=== PATIENT | female | born 1960 | race Caucasian/White ===

== ENCOUNTER 2018-11-28 12:45 | Emergency (ER) | payer SELFPAY ==
[~2018-11-28] VITALS: Ht 175.3 cm; Wt 77.1 kg
--- NOTE | 2018-11-28 13:00 | NUR ---
patient in room 2a
[2018-11-28] MEDS ORDERED: ONDANSETRON 4 MG/2 ML VIAL IM ONE (13:30)
[2018-11-28] MEDS ORDERED: HYDROMORPHONE 1 MG/1 ML DISP.SYRIN IM ONE (13:30)
--- NOTE | 2018-11-28 13:34 | NUR ---
refused dilaudid and zofran shots. Dr Rios made aware. rx will be changed to po
[2018-11-28] MEDS ORDERED: OXYCODONE/APAP 5-325 MG TABLET PO ONE (13:45)
--- NOTE | 2018-11-28 13:45 | NUR ---
medicated for pain with percocet 2 tabs po
[2018-11-28] MEDS ORDERED: OXYCODONE/APAP 5-325 MG TABLET ONE (13:46)
--- NOTE | 2018-11-28 14:04 | NUR ---
dr Rios at the bedside reassessing patient
[2018-11-28 14:11] VITALS: BP 146/94
== END 2018-11-28 14:12 | disposition home or self-care (01) ==
LOC: ER 12:45
DX: M54.40 Lumbago with sciatica, unspecified side (principal); G89.29 Other chronic pain
CPT/HCPCS: A4663

== ENCOUNTER 2018-12-17 15:10 | Emergency (ER) | payer SELFPAY ==
[~2018-12-17] VITALS: Ht 165.1 cm; Wt 77.1 kg
--- NOTE | 2018-12-17 15:24 | NUR ---
Patient discharged to home in stable conditon with slow steady gait. Written and verbal after care instructions given to patient. Patient verbalizes understanding of instructions.
== END 2018-12-17 15:26 | disposition home or self-care (01) ==
LOC: ER 15:12
DX: M25.561 Pain in right knee (principal); M25.562 Pain in left knee; V49.9XXA Car occupant (driver) (passenger) injured in unspecified traffic accident, initial encounter; Y93.89 Activity, other specified; Y92.89 Other specified places as the place of occurrence of the external cause; Y99.8 Other external cause status
CPT/HCPCS: A4663

== ENCOUNTER 2018-12-26 12:29 | Emergency (ER) | payer SELFPAY ==
[~2018-12-26] VITALS: Ht 175.3 cm; Wt 77.1 kg
--- NOTE | 2018-12-26 12:41 | NUR ---
in room 2b
[2018-12-26 12:50] VITALS: BP 130/86
--- NOTE | 2018-12-26 12:52 | NUR ---
seen by Dr. Glasgow. exit care and prescription given and signed by patient
== END 2018-12-26 12:53 | disposition home or self-care (01) ==
LOC: ER 12:29
DX: M25.561 Pain in right knee (principal); M25.562 Pain in left knee
CPT/HCPCS: A4663

== ENCOUNTER 2019-01-07 18:29 | Emergency (ER) | payer BC ==
[~2019-01-07] VITALS: Ht 175.3 cm; Wt 77.1 kg
[2019-01-07] MEDS ORDERED: predniSONE 20 MG TABLET PO ONE (19:00)
[2019-01-07] MEDS ORDERED: predniSONE 20 MG TABLET ONE (19:01)
--- NOTE | 2019-01-07 19:03 | NUR ---
PT WAS EVALUATED BY DR JOSHUA. PT WAS D/C TO HOME. D/C INSTRUCTIONS GIVEN TO THE PT.
[2019-01-07 19:04] VITALS: BP 140/82
== END 2019-01-07 19:05 | disposition home or self-care (01) ==
LOC: ER 18:29
DX: M54.42 Lumbago with sciatica, left side (principal); G89.29 Other chronic pain; Z88.8 Allergy status to other drugs, medicaments and biological substances
CPT/HCPCS: 99283; J7512; A4663

== ENCOUNTER 2019-01-12 15:44 | Emergency (ER) | payer BC ==
[~2019-01-12] VITALS: Ht 175.3 cm; Wt 77.1 kg
--- NOTE | 2019-01-12 16:53 | NUR ---
Patient discharged to home in stable conditon. Written and verbal after care instructions given. Patient verbalizes understanding of instructions.
== END 2019-01-12 16:55 | disposition home or self-care (01) ==
LOC: ER 15:44
DX: M25.461 Effusion, right knee (principal); M25.562 Pain in left knee; M79.645 Pain in left finger(s); Z88.8 Allergy status to other drugs, medicaments and biological substances; W01.0XXA Fall on same level from slipping, tripping and stumbling without subsequent striking against object, initial encounter; Y93.89 Activity, other specified; Y92.89 Other specified places as the place of occurrence of the external cause; Y99.8 Other external cause status
CPT/HCPCS: A4663

== ENCOUNTER 2019-01-16 11:04 | Emergency (ER) | payer BC ==
[~2019-01-16] VITALS: Ht 175.3 cm; Wt 81.6 kg
--- NOTE | 2019-01-16 11:30 | NUR ---
PT RECEIVED AMBULATORY FR HOME. CO R KNEE, S/P FALL 01/11/2019. DESCRIBING WORSENING PAIN AND SWELLING TO SITE. LAST TAKEN PAIN MEDS([facility]) WednesdaySTANLEY MCKENZIE AT BEDSIDE FOR HISTORY AND PHYSICAL
--- NOTE | 2019-01-16 12:05 | NUR ---
AT BEDSIDE FOR ULTRASOUND OF RT KNEE. PT ABLE TO TOLERATE PROCEDURE. NOT IN ANY FORM OF DISTRESS.
--- NOTE | 2019-01-16 12:22 | NUR ---
Patient discharged to home in stable conditon, AMBULATORY WITH ANTALGIC GAIT. Written and verbal after care instructions given. Patient verbalizes understanding of instructions. RX GIVEN FOR PAIN.
[2019-01-16 12:26] VITALS: BP 130/80
== END 2019-01-16 12:27 | disposition home or self-care (01) ==
LOC: ER 11:04
DX: S80.01XA Contusion of right knee, initial encounter (principal); M25.461 Effusion, right knee; Z88.8 Allergy status to other drugs, medicaments and biological substances; W01.0XXA Fall on same level from slipping, tripping and stumbling without subsequent striking against object, initial encounter; Y93.89 Activity, other specified; Y92.89 Other specified places as the place of occurrence of the external cause; Y99.8 Other external cause status
CPT/HCPCS: A4663

== ENCOUNTER 2019-01-21 10:26 | Emergency (ER) | payer BC ==
[~2019-01-21] VITALS: Ht 175.3 cm; Wt 81.6 kg
--- NOTE | 2019-01-21 11:04 | NUR ---
PT WAS EVALUATED BY DR FRANZ. PT WAS D/C'D TO HOME. D/C INSTRUCTIONS GIVEN TO THE PT.
[2019-01-21 11:05] VITALS: BP 136/74
== END 2019-01-21 11:06 | disposition home or self-care (01) ==
LOC: ER 10:26
DX: M25.461 Effusion, right knee (principal); Z88.8 Allergy status to other drugs, medicaments and biological substances
CPT/HCPCS: A4663

== ENCOUNTER 2019-01-24 11:47 | Emergency (ER) | payer BC ==
[~2019-01-24] VITALS: Ht 175.3 cm; Wt 81.6 kg
--- NOTE | 2019-01-24 11:59 | NUR ---
Patient discharged to home in stable conditon. Written and verbal after care instructions given. Patient verbalizes understanding of instructions. Stressed follow up.
== END 2019-01-24 12:00 | disposition home or self-care (01) ==
LOC: ER 11:48
DX: M25.461 Effusion, right knee (principal)
CPT/HCPCS: A4663

== ENCOUNTER 2019-02-04 15:12 | Emergency (ER) | payer BC ==
[~2019-02-04] VITALS: Ht 175.3 cm; Wt 81.6 kg
--- NOTE | 2019-02-04 16:00 | NUR ---
PATIENT WAS MSE BY DR FRANZ IN ROOM 03A.
--- NOTE | 2019-02-04 16:17 | NUR ---
Patient discharged to home in stable conditon. Written and verbal after care instructions given. Patient verbalizes understanding of instructions.
[2019-02-04 16:24] VITALS: BP 134/75
== END 2019-02-04 16:30 | disposition home or self-care (01) ==
LOC: ER 15:14
DX: M25.461 Effusion, right knee (principal); Z88.8 Allergy status to other drugs, medicaments and biological substances
CPT/HCPCS: A4663

== ENCOUNTER 2019-02-11 12:46 | Emergency (ER) | payer SELFPAY ==
--- NOTE | 2019-02-11 12:48 | NUR ---
PT WAS CALLED TO TRIAGE AREA - NO RESPONSE.
--- NOTE | 2019-02-11 13:01 | NUR ---
PT WAS CALLED TO TRIAGE AREA - NO RESPONS.
== END 2019-02-11 13:03 | disposition left against medical advice (07) ==
LOC: ER 12:49
DX: Z53.21 Procedure and treatment not carried out due to patient leaving prior to being seen by health care provider (principal)

== ENCOUNTER 2019-02-20 10:03 | Emergency (ER) | payer SELFPAY ==
[~2019-02-20] VITALS: Ht 175.3 cm; Wt 81.6 kg
--- NOTE | 2019-02-20 10:47 | NUR ---
Patient eloped from facility. ER physician notified.
== END 2019-02-20 10:48 | disposition left against medical advice (07) ==
LOC: ER 10:03
DX: Z53.21 Procedure and treatment not carried out due to patient leaving prior to being seen by health care provider (principal)
CPT/HCPCS: A4663

== ENCOUNTER 2019-04-17 13:29 | Emergency (ER) | payer SELFPAY ==
[~2019-04-17] VITALS: Ht 175.3 cm; Wt 81.6 kg
[2019-04-17] MEDS ORDERED: OXYCODONE/APAP 5-325 MG TABLET PO ONE (14:00)
[2019-04-17] MEDS ORDERED: OXYCODONE/APAP 5-325 MG TABLET ONE (14:02)
--- NOTE | 2019-04-17 14:02 | NUR ---
Patient discharged to home in stable conditon. Written and verbal after care instructions given. Patient verbalizes understanding of instructions.pt walks in steady gait.
== END 2019-04-17 14:04 | disposition home or self-care (01) ==
LOC: ER 13:29
DX: G89.29 Other chronic pain (principal); M25.561 Pain in right knee; Z88.8 Allergy status to other drugs, medicaments and biological substances
CPT/HCPCS: A4663

== ENCOUNTER 2019-08-24 15:38 | Emergency (ER) | payer SELFPAY ==
[~2019-08-24] VITALS: Ht 175.3 cm; Wt 79.4 kg
--- NOTE | 2019-08-24 15:50 | NUR ---
ENRIQUE MCKENZIE AT BEDSIDE FOR MSE.
--- NOTE | 2019-08-24 16:14 | NUR ---
PT REFUSING ADDITIONAL XRAY FOR L SHOULDER. ER NOTIFIED.
--- NOTE | 2019-08-24 16:46 | NUR ---
Patient discharged to home in stable conditon. Written and verbal after care instructions given. Patient verbalizes understanding of instructions. ALL BELONGINGS W/ PT. PT SELF-AMBULATED W/O DIFFICULTY.
[2019-08-24 16:47] VITALS: BP 146/88
== END 2019-08-24 16:47 | disposition home or self-care (01) ==
LOC: ER 15:38
DX: M54.12 Radiculopathy, cervical region (principal); M25.512 Pain in left shoulder
CPT/HCPCS: 73030; A4663

== ENCOUNTER 2020-04-11 14:46 | Emergency (ER) | payer BC ==
[~2020-04-11] VITALS: Ht 175.3 cm; Wt 72.6 kg
[2020-04-11] MEDS ORDERED: HYDROCODONE/APAP 5-325MG TABLET PO ONE (15:00)
[2020-04-11] MEDS ORDERED: KETOROLAC TROMETHAMINE 15 MG INJ IM ONE (15:00)
--- NOTE | 2020-04-11 15:00 | NUR ---
Dr. Leal at bedside for MSE
[2020-04-11] MEDS ORDERED: HYDROCODONE/APAP 5-325MG TABLET ONE (15:14)
[2020-04-11] MEDS ORDERED: IBUPROFEN 600 MG TABLET PO ONE (15:15)
[2020-04-11] MEDS ORDERED: IBUPROFEN 600 MG TABLET ONE (15:25)
--- NOTE | 2020-04-11 15:48 | NUR ---
Patient discharged to home in stable condition. Written and verbal after care instructions given. Patient verbalizes understanding of instructions. Stressed follow up or return to ER for worsening s/s. Patient ambulated with steady gait. NAD noted
[2020-04-11 15:53] VITALS: BP 129/86
== END 2020-04-11 15:48 | disposition home or self-care (01) ==
LOC: ER 14:46
DX: M25.531 Pain in right wrist (principal); M79.644 Pain in right finger(s); V43.52XA Car driver injured in collision with other type car in traffic accident, initial encounter; Y92.410 Unspecified street and highway as the place of occurrence of the external cause; G89.4 Chronic pain syndrome; Z98.84 Bariatric surgery status
CPT/HCPCS: 73100; 73110; 73130; A4663

== ENCOUNTER 2023-06-20 10:49 | Emergency (ER) | payer SELFPAY ==
[~2023-06-20] VITALS: Ht 175.3 cm; Wt 83.9 kg
[2023-06-20] MEDS ORDERED: OXYC-128 PO (11:06)
[2023-06-20 11:12] VITALS: BP 120/85; O2SAT 98
== END 2023-06-20 11:13 | disposition home or self-care (01) ==
LOC: ER 10:56
DX: G89.18 Other acute postprocedural pain (principal); M25.562 Pain in left knee; Z76.0 Encounter for issue of repeat prescription; Z88.6 Allergy status to analgesic agent; Z88.5 Allergy status to narcotic agent; Z88.8 Allergy status to other drugs, medicaments and biological substances; Z79.899 Other long term (current) drug therapy
CPT/HCPCS: A4606; A4663

== ENCOUNTER 2023-07-18 16:02 | Emergency (ER) | payer BC ==
[~2023-07-18] VITALS: Ht 175.3 cm; Wt 74.8 kg
[~2023-07-18 16:02] MED LIST: OXYC-128 PO
[2023-07-18] MEDS ORDERED: OXYC-128 PO (16:29)
[2023-07-18] MEDS ORDERED: NALO4SPR BNOSTRILS (16:31)
[2023-07-18 16:42] VITALS: BP 118/76; TEMP 98.2; O2SAT 98
== END 2023-07-18 16:42 | disposition home or self-care (01) ==
LOC: ER 16:05
DX: M25.562 Pain in left knee (principal); Z76.0 Encounter for issue of repeat prescription; E66.9 Obesity, unspecified; Z79.899 Other long term (current) drug therapy; Z88.1 Allergy status to other antibiotic agents
CPT/HCPCS: A4606; A4663

== ENCOUNTER 2023-07-28 14:15 | Emergency (ER) | payer BC ==
[~2023-07-28] VITALS: Ht 175.3 cm; Wt 74.8 kg
[~2023-07-28 14:15] MED LIST changes: +NALO4SPR BNOSTRILS
[2023-07-28] MEDS ORDERED: ADENOSINE 6 MG/2 ML SYR IV ONE ×2 (14:45)
[2023-07-28] MEDS ORDERED: LORAZEPAM 2 MG/1 ML VIAL IV ONE (15:00)
[2023-07-28] MEDS ORDERED: METOPROLOL TARTRATE 50 MG TABLET PO ONE (15:00)
[2023-07-28] MEDS ORDERED: OXYC-128 PO (15:12)
[2023-07-28 15:32] VITALS: BP 159/84; O2SAT 99
== END 2023-07-28 16:14 | disposition home or self-care (01) ==
LOC: ER 14:15
DX: M54.40 Lumbago with sciatica, unspecified side (principal); G89.29 Other chronic pain; Z88.5 Allergy status to narcotic agent; Z88.6 Allergy status to analgesic agent; Z88.8 Allergy status to other drugs, medicaments and biological substances; Z79.899 Other long term (current) drug therapy
CPT/HCPCS: A4606; A4663

== ENCOUNTER 2023-08-07 10:24 | Emergency (ER) | payer BC ==
[~2023-08-07] VITALS: Ht 175.3 cm; Wt 74.8 kg
[2023-08-07 10:39] VITALS: O2SAT 99
[2023-08-07] MEDS ORDERED: OXYC-128 PO (11:15)
== END 2023-08-07 11:36 | disposition home or self-care (01) ==
LOC: ER 10:26
DX: G89.28 Other chronic postprocedural pain (principal); M25.562 Pain in left knee; Z79.899 Other long term (current) drug therapy; Z88.5 Allergy status to narcotic agent; Z88.1 Allergy status to other antibiotic agents
CPT/HCPCS: A4606; A4663

== ENCOUNTER 2023-09-03 15:12 | Emergency (ER) | payer BC ==
[~2023-09-03] VITALS: Ht 175.3 cm; Wt 74.8 kg
[2023-09-03 15:14] VITALS: O2SAT 99
== END 2023-09-03 15:45 | disposition home or self-care (01) ==
LOC: ER 15:12
DX: G89.29 Other chronic pain (principal); M54.50 Low back pain, unspecified; Z98.890 Other specified postprocedural states; Z79.899 Other long term (current) drug therapy; Z88.5 Allergy status to narcotic agent
CPT/HCPCS: A4606; A4663

== ENCOUNTER 2024-02-28 14:16 | Emergency (ER) | payer BC ==
[~2024-02-28 14:16] MED LIST changes: +HYDR-3980 PO
== END 2024-02-28 15:22 | disposition left against medical advice (07) ==
LOC: ER 14:16
DX: M54.9 Dorsalgia, unspecified (principal); Z53.21 Procedure and treatment not carried out due to patient leaving prior to being seen by health care provider

== ENCOUNTER 2024-03-05 13:23 | Emergency (ER) | payer BC ==
[~2024-03-05] VITALS: Ht 175.3 cm; Wt 70.3 kg
[2024-03-05 13:36] VITALS: O2SAT 99
[2024-03-05] MEDS ORDERED: OXYC-128 PO (14:05)
== END 2024-03-05 14:11 | disposition home or self-care (01) ==
LOC: ER 13:24
DX: G89.29 Other chronic pain (principal); M54.50 Low back pain, unspecified; Z98.890 Other specified postprocedural states; Z79.891 Long term (current) use of opiate analgesic; Z79.899 Other long term (current) drug therapy; Z60.2 Problems related to living alone; Z88.5 Allergy status to narcotic agent; Z88.1 Allergy status to other antibiotic agents
CPT/HCPCS: A4606; A4663

== ENCOUNTER 2024-04-23 14:14 | Emergency (ER) | payer BC ==
[~2024-04-23] VITALS: Ht 175.3 cm; Wt 70.3 kg
[2024-04-23 14:17] VITALS: O2SAT 98
[2024-04-23] MEDS ORDERED: HYDR-3980 PO (14:36)
== END 2024-04-23 14:40 | disposition home or self-care (01) ==
LOC: ER 14:15
DX: M54.32 Sciatica, left side (principal); Z96.653 Presence of artificial knee joint, bilateral; Z98.84 Bariatric surgery status; Z88.5 Allergy status to narcotic agent; Z88.6 Allergy status to analgesic agent
CPT/HCPCS: A4606; A4663

== ENCOUNTER 2024-06-27 16:13 | Emergency (ER) | payer BC, MEDICARE ==
[~2024-06-27] VITALS: Ht 172.7 cm; Wt 70.3 kg
[2024-06-27 16:17] VITALS: O2SAT 99
== END 2024-06-27 16:40 | disposition left against medical advice (07) ==
LOC: ER 16:13
DX: M54.40 Lumbago with sciatica, unspecified side (principal); G89.4 Chronic pain syndrome; Z96.653 Presence of artificial knee joint, bilateral; Z98.84 Bariatric surgery status; Z79.899 Other long term (current) drug therapy; Z88.5 Allergy status to narcotic agent; Z88.6 Allergy status to analgesic agent
CPT/HCPCS: A4606; A4663